=== PATIENT | female | born 1990 | race Caucasian/White ===

== ENCOUNTER 2017-10-13 22:34 | Inpatient (IN) | payer OTHER ==
[~2017-10-13] VITALS: Ht 165.1 cm; Wt 76.7 kg
--- NOTE | 2017-10-13 22:36 | NUR ---
PT BIBA TO ER BED 03
[2017-10-13 22:45] VITALS: BP 82/45
--- NOTE | 2017-10-13 22:45 | NUR ---
Pt presents to ed with recal bleeding, syncopy, and bleeding x1 day. Pt seen by on admission to ED. Pt states liposuction and fat transfer done in [place] x1 day ago. Pt has drain at superior gluteal fold. No c/o pain. A&Ox4. Positioned for comfort. Continue to monitor.
[2017-10-13] MEDS ORDERED: NACL 0.9% 1,000 ML IV ONE (23:15)
[2017-10-14] LABS: BASOPHILS # (AUTO) 0.4 K/uL (0.00-0.22); BASOPHILS % (AUTO) 4.3 % (0.0-2.0); EOSINOPHILS % (AUTO) 0.3 % (0.0-4.0); HEMATOCRIT 29.1 % (36-48); LYMPHOCYTES # (AUTO) 1.3 K/uL (2.5-16.5); LYMPHOCYTES % (AUTO) 15.2 % (20.5-51.1); MEAN CORPUSCULAR HEMOGLOBIN 32 pg (27-31); MEAN CORPUSCULAR HGB CONC 34 g/dL (33-37); MEAN CORPUSCULAR VOLUME 92.1 fL (80-94); MONOCYTES # (AUTO) 0.8 K/uL (0.8-1.0); MONOCYTES % (AUTO) 8.8 % (1.7-9.3); NEUTROPHILS # (AUTO) 6.3 K/uL (1.8-7.7); NEUTROPHILS % (AUTO) 71.4 % (42.2-75.2); PLATELET COUNT (AUTO) 161 K/uL (140-450); RED BLOOD CELL COUNT(AUTO) 3.16 MIL/uL (4.20-5.40); RED CELL DISTRIBUTION WIDTH 11.8 % (11.6-13.7); WHITE BLOOD COUNT (AUTO) 8.8 K/uL (4.8-10.8)
[2017-10-14] MEDS ORDERED: ACETAMINOPHEN EXTRA STRENGTH 500 MG TAB PO ONE (00:15)
[2017-10-14] MEDS ORDERED: PIPERACILLIN/TAZOBACTAM 3.375 GM in DEXTROSE 5% 50 ML IV ONE (00:20)
[2017-10-14] MEDS ORDERED: PIPERACILLIN/TAZOBACTAM 3.375 GM VIAL IV ONE ×2 (00:22→04:29)
[2017-10-14 00:40] LABS: CARBON DIOXIDE 26.9 mmol/L (21-32); CREATININE 0.6 mg/dL (0.6-1.3); POTASSIUM 3.9 mmol/L (3.5-5.1)
[2017-10-14 00:46] LABS: ALBUMIN 2.8 g/dL (3.4-5.0); TOTAL BILIRUBIN 0.4 mg/dL (0.0-1.0)
--- NOTE | 2017-10-14 01:00 | NUR ---
Pt states pain 5/10 is an acceptable, tolerable pain leve. VSS. continue to monitor.
[2017-10-14] MEDS ORDERED: NACL 0.9% 1,000 ML IV ONE (01:15)
[2017-10-14 01:16] LABS: APPEARANCE,URINE CLEAR (CLEAR); BILIRUBIN,URINE NEGATIVE (NEGATIVE); BLOOD, URINE 2+ (NEGATIVE); COLOR,URINE YELLOW (YELLOW); LEUKOCYTE ESTERASE ,URINE NEGATIVE (NEGATIVE); NITRITE, URINE NEGATIVE (NEGATIVE); PH,URINE 5.5 (5.0-9.0); UGLUCOSE NEGATIVE (NEGATIVE)
[2017-10-14 01:24] LABS: RBC,URINE 0-5 (RARE) /HPF (0-5); WBC,URINE 0-5 (RARE) /HPF (0-5)
[2017-10-14] MEDS ORDERED: ACETAMINOPHEN 325 MG TAB PO PRN (01:35)
[2017-10-14] MEDS ORDERED: HYDROcodone/APAP 5/325 MG 1 TAB TAB PO PRN ×2 (01:35)
[2017-10-14] MEDS ORDERED: ONDANSETRON 4 MG/2 ML VIAL IVP PRN (01:35)
[2017-10-14 02:25] VITALS: BP 101/41
--- NOTE | 2017-10-14 02:25 | NUR ---
PATIENT ADMITTED TO THE UNIT FROM ER. PATIENT AWAKE, ALERT AND ORIENTED. NO SIGNS AND SYMPTOMS OF DISTRESS NOTED. NO COMPLAINTS OF PAIN AT THIS TIME. PATIENT IS ON ROOM AIR. IV SITE NOTED ON RIGHT AC, ASYMPTOMATIC, INTACT, PATIENT. MULTIPLE 1CM SURGICAL INCISIONS WITH INTACT SUTURES NOTED ON PATIENT'S BACK. SURGICAL DRAIN NOTED IN GLUTEAL CLEFT, DRAINING SEROSANGUINOUS DRAINAGE. PLAN OF CARE DISCUSSED WITH PATIENT. PATIENT VERBALIZED UNDERSTANDING. BED IN LOWEST POSITION, SIDE RAILS UP AND CALL LIGHT WITHIN REACH. WILL CONTINUE TO MONITOR.
--- NOTE | 2017-10-14 02:32 | NUR ---
Report given and care transfered to [facility] room 104A. Transported via gurney with VSS.
[2017-10-14] MEDS: NACL 0.9% 1,000 ML IV SCH ×4 (03:00→20:20)
--- NOTE | 2017-10-14 04:30 | NUR ---
CHECKED ON PATIENT. PATIENT IS ASLEEP. NO SIGNS AND SYMPTOMS OF DISTRESS NOTED. BREATHING EVEN AND UNLABORED. WILL CONTINUE TO MONITOR.
[2017-10-14 05:00] VITALS: BP 96/40
[2017-10-14] MEDS ORDERED: PIPERACILLIN/TAZOBACTAM 3.375 GM in DEXTROSE 5% 50 ML IV SCH (05:00)
--- NOTE | 2017-10-14 07:27 | NUR ---
PATIENT REPORT GIVEN TO MORNING NURSE AT BEDSIDE FOR CONTINUITY OF CARE. PATIENT IS IN STABLE CONDITION
--- NOTE | 2017-10-14 07:28 | NUR ---
RECEIVED REPORT FROM PROGRAM MANAGEMENT SPECIALIST NURSE MANNIE AT BEDSIDE FOR CONTINUITY OF CARE. PT IS AWAKE AND ORIENTED. INTRODUCED SELF AND UPDATED BOARD. PT'S MOM IS AT BEDSIDE. PT DENIES PAIN. LUNG SOUNDS CLEAR ON AUSCULTATION. O2 SAT 98% ON RA. NO SOB. DRAINAGE ON GLUTEAL CLEFT INTACT. SEROSANGUINEOUS OF SMALL AMOUNT NOTED. MULTIPLE 1CM SURGICAL INCISIONS ON BACK INTACT WITH NO DRAINAGE. BED IN LOW POSITION, WHEELS LOCKED, CALL LIGHT WITHIN REACH. WILL CONTINUE TO MONITOR.
[2017-10-14 08:00] VITALS: BP 100/45
--- NOTE | 2017-10-14 09:06 | NUR ---
DR. SEARS CAME IN CONSULT FOR PT. NO SURGERY AT THIS TIME. TOLD PT SHE NEEDS TO RETURN BACK TO [facility] FOR FOLLOW UP WITH SURGEON THERE.
--- NOTE | 2017-10-14 10:07 | NUR ---
PATIENT HAS BEEN SCREENED AND CATEGORIZED LOW NUTRITION RISK. PATIENT WILL BE SEEN WITHIN 7 DAYS OF ADMISSION. 10/20/[address]
--- NOTE | 2017-10-14 11:00 | NUR ---
PT GOT UP OUT OF BED TO USE RESTROOM. WALKED WITH STEADY GAIT. HAD SEROSANGUINEOUS DRAINAGE OF LARGE AMOUNT FROM JARED DRAIN. CHANGED LINENS, GOWN AND PADS. PT BACK TO BED. DENIES PAIN. MOTHER AT BEDSIDE. ASKED IF PT NEEDED ANYTHING RIGHT NOW. STATED "NO." NO SIGNS OF DISTRESS. WILL CONTINUE TO MONITOR.
[2017-10-14 11:48] LABS: ANION GAP 9.2 (8-16); CARBON DIOXIDE 26.6 mmol/L (21-32); CREATININE 0.5 mg/dL (0.6-1.3); POTASSIUM 3.8 mmol/L (3.5-5.1)
[2017-10-14 12:00] VITALS: BP 110/55
[2017-10-14] MEDS: PIPER/TAZO 3.375GM/D5W PREMIX 50 ML IV SCH ×2 (13:43→20:20)
--- NOTE | 2017-10-14 15:30 | NUR ---
PT RESTING IN BED. ASKED IF PT WAS IN PAIN. DENIES PAIN AND DOES NOT WANT PAIN MEDICATION. MOTHER AT BEDSIDE. BED IN LOW POSITION, WHEELS LOCKED, CALL LIGHT WITHIN REACH. WILL CONTINUE TO MONITOR.
--- NOTE | 2017-10-14 15:49 | NUR ---
CM NOTE INITIAL REVIEW FAXED TO [facility] [phone] MICHAEL PH# [phone]
[2017-10-14 16:00] VITALS: BP 113/53
[2017-10-14 17:23] LABS: BASOPHILS # (AUTO) 0.2 K/uL (0.00-0.22); EOSINOPHILS # (AUTO) 0.1 K/uL (0-0.4); HEMATOCRIT 26.1 % (36-48); HEMOGLOBIN 8.6 g/dL (12.0-16.0); LYMPHOCYTES # (AUTO) 1.6 K/uL (2.5-16.5); MEAN CORPUSCULAR HEMOGLOBIN 31 pg (27-31); MEAN CORPUSCULAR HGB CONC 33 g/dL (33-37); MEAN CORPUSCULAR VOLUME 92.8 fL (80-94); MONOCYTES # (AUTO) 0.6 K/uL (0.8-1.0); PLATELET COUNT (AUTO) 136 K/uL (140-450); RED BLOOD CELL COUNT(AUTO) 2.81 MIL/uL (4.20-5.40); RED CELL DISTRIBUTION WIDTH 11.6 % (11.6-13.7); WHITE BLOOD COUNT (AUTO) 6.5 K/uL (4.8-10.8)
--- NOTE | 2017-10-14 19:30 | NUR ---
ASSUMED CARE OF PATIENT, AWAKE, ALERT AND ORIENTED. NO COMPLAINS. CALL LIGHT WITHIN REACH.
--- NOTE | 2017-10-14 19:30 | NUR ---
ENDORSED PT TO ALLOCATION ANALYST NURSE AT BEDSIDE FOR CONTINUITY OF CARE. PT IN STABLE CONDITION.
--- NOTE | 2017-10-14 20:00 | NUR ---
VITAL SIGNS STABLE. NO COMPLAINS. PLAN OF CARE DISCUSSED WITH PATIENT AND FAMILY MEMBER, VERBALIZED UNDERSTANDING WELL. CALL LIGHT WITHIN REACH.
[2017-10-14 20:51] VITALS: BP 109/50
[2017-10-15 00:14] VITALS: BP 93/46
--- NOTE | 2017-10-15 00:15 | NUR ---
AWAKE, NO COMPLAINS. AFEBRILE. CALL LIGHT WITHIN REACH. VITAL SIGNS STABLE.
--- NOTE | 2017-10-15 04:00 | NUR ---
SLEEPING WELL. EASILY AROUSABLE. NO COMPLAINS. CALL LIGHT WITHIN REACH.
[2017-10-15] MEDS: PIPER/TAZO 3.375GM/D5W PREMIX 50 ML IV SCH ×2 (04:12→13:41)
[2017-10-15] MEDS: NACL 0.9% 1,000 ML IV SCH (04:12)
[2017-10-15 04:43] VITALS: BP 101/48
--- NOTE | 2017-10-15 07:08 | NUR ---
ENDORSED CARE AT BEDSIDE WITH ALLEN RN, PATIENT IN STABLE CONDITION.
--- NOTE | 2017-10-15 07:09 | NUR ---
RECEIVED REPORT FROM AQUACULTURIST RN. PATIENT IS AAOX4, HAS NO SIGNS AND SYMPTOMS OF ACUTE DISTRESS NOTED AT THIS TIME. PATIENT HAS IV TO THE RIGHT AC 20G INFUSING NS AT 125 ML/HR. SITE IS CLEAN, DRY, PATENT AND INTACT. DISCUSSED PLAN OF CARE WITH PATIENT AND SHE VERBALIZED UNDERSTANDING. BED IN LOWEST POSITION, SIDE RAILS UP X2, CALL LIGHT PLACED WITHIN REACH. WILL CONTINUE TO MONITOR.
[2017-10-15 08:00] VITALS: BP 107/53
[2017-10-15 08:22] LABS: BASOPHILS % (AUTO) 0.7 % (0.0-2.0); EOSINOPHILS # (AUTO) 0.3 K/uL (0-0.4); EOSINOPHILS % (AUTO) 4.9 % (0.0-4.0); HEMATOCRIT 25.7 % (36-48); HEMOGLOBIN 8.8 g/dL (12.0-16.0); LYMPHOCYTES # (AUTO) 1.6 K/uL (2.5-16.5); MEAN CORPUSCULAR HEMOGLOBIN 32 pg (27-31); MEAN CORPUSCULAR HGB CONC 34 g/dL (33-37); MEAN CORPUSCULAR VOLUME 94.1 fL (80-94); MONOCYTES # (AUTO) 0.5 K/uL (0.8-1.0); MONOCYTES % (AUTO) 6.9 % (1.7-9.3); NEUTROPHILS # (AUTO) 4.4 K/uL (1.8-7.7); NEUTROPHILS % (AUTO) 63.5 % (42.2-75.2); PLATELET COUNT (AUTO) 142 K/uL (140-450); RED BLOOD CELL COUNT(AUTO) 2.73 MIL/uL (4.20-5.40); RED CELL DISTRIBUTION WIDTH 12.6 % (11.6-13.7); WHITE BLOOD COUNT (AUTO) 6.9 K/uL (4.8-10.8)
[2017-10-15 08:36] LABS: ALBUMIN 2.3 g/dL (3.4-5.0); ANION GAP 10.4 (8-16); CARBON DIOXIDE 25.4 mmol/L (21-32); CREATININE 0.4 mg/dL (0.6-1.3); POTASSIUM 3.8 mmol/L (3.5-5.1); TOTAL BILIRUBIN 0.5 mg/dL (0.0-1.0)
[2017-10-15 12:00] VITALS: BP 101/53
--- NOTE | 2017-10-15 13:44 | NUR ---
CM NOTE CONCURRENT REVIEW FAXED TO [facility] [phone] MICHAEL PH# [phone]
[2017-10-15] MEDS ORDERED: AMOX-1000 PO (14:01)
--- NOTE | 2017-10-15 15:20 | NUR ---
WALKED IN THE ROOM TO SEE IF PATIENT WAS READY TO GO HOME AND FOUND HER KNEELING ON THE SIDE OF THE BED, HER MOTHER WAS HOLDING HER AND TALKING LOUD TO HER. PATIENT LOOKED PALE AND CLAMMY, EYES ROLLING BACK AND SHE WAS AND SAYING IN [place] "BECAUSE I NEED IT". HELPED PATIENT UP AND SAT HER DOWN WITH FRAMING MILL OPERATOR HELPER'S HELP GRABBED VITAL SIGNS MACHINE AND HELP FROM WAQAS MADRIGAL. BLOOD PRESSURE WAS 100/24.
--- NOTE | 2017-10-15 15:25 | NUR ---
PATIENT IS AAOX4, DOESN'T REALLY REMEMBER WHAT DURING THE EPISODE. BLOOD PRESSURE IS 99/35. MADE DR CALI AWARE. PATIENT IS STATING THAT SHE WANTS TO GO HOME.
--- NOTE | 2017-10-15 15:30 | NUR ---
DR CALI IN HERE TALKING TO PATIENT. HE ASKED HER IF SHE WANTED TO STAY ONE MORE NIGHT OR GO HOME THIS AFTER NOON. PATIENT STATED THAT SHE WOULD LIKE TO GO HOME THIS AFTER NOON. WILL CONTINUE TO MONITOR.
--- NOTE | 2017-10-15 16:30 | NUR ---
WALKED AROUND THE UNIT WITH PATIENT. SHE STATES SHE FEELS BETTER. AMBULATED WELL, DID NOT FAINT DURING WALK.
--- NOTE | 2017-10-15 16:45 | NUR ---
REASSESSED PATIENTS BLOOD PRESSURE IT WAS 90/50. DIASTOLIC HAS GONE UP SINCE PATIENT FAINTED. EDUCATED PATIENT ON THE IMPORTANCE OF DRINKING PLENTY OF FLUIDS AND EATING HEALTHY. ALSO EDUCATED HER ON TAKING HER TIME TO GET UP FROM A LAYING POSITION. PATIENT FEELS GOOD ENOUGH TO GO HOME NOW.
--- NOTE | 2017-10-15 17:00 | NUR ---
DISCHARGE ORDERS ARE IN PLACE. EDUCATED PATIENT ON FOLLOWING UP WITH PRIMARY CARE PHYSICIAN AND SURGEON. INFORMED HER OF S/S OF DISTRESS AND TO SEEK EMERGENCY MEDICAL ATTENTION. PATIENT VERBALIZED UNDERSTANDING. HAD ALREADY REMOVED IV FROM SITE. SITE IS CLEAN AND DRY. ALL BELONGINGS ARE WITH PATIENT. MOTHER AT THE BEDSIDE. ID BANDS REMOVED. PATIENT HAS NO SIGNS AND SYMPTOMS OF ACUTE DISTRESS NOTED AT THIS TIME. WAQAS MADRIGAL WILL WALK PATIENT OUT.
== END 2017-10-15 17:00 | disposition home or self-care (01) | DRG 813 ==
LOC: MED 22:34 → MTU 10-14 01:39
PROVIDERS: ADMIT Internal Medicine; ATTEND Internal Medicine
DX: L76.22 Postprocedural hemorrhage of skin and subcutaneous tissue following other procedure (principal); I95.9 Hypotension, unspecified; E87.8 Other disorders of electrolyte and fluid balance, not elsewhere classified; E44.1 Mild protein-calorie malnutrition; E83.51 Hypocalcemia; Y83.8 Other surgical procedures as the cause of abnormal reaction of the patient, or of later complication, without mention of misadventure at the time of the procedure; D62 Acute posthemorrhagic anemia; E66.9 Obesity, unspecified; Z68.28 Body mass index [BMI] 28.0-28.9, adult; Z88.6 Allergy status to analgesic agent
CPT/HCPCS: 36415; 80048; 80053; 81001; 81025; 83605; 83735; 85025; 85610; 85730; 86886; 86900; 86901; 87040; 87081; 93005; 96361; 96365; 99285; J2543; J7030; J7060

== ENCOUNTER 2021-09-16 18:00 | Emergency (ER) | payer MEDICAID, OTHER ==
[~2021-09-16] VITALS: Ht 165.1 cm; Wt 78.0 kg
[~2021-09-16 18:00] MED LIST: AMOX-1000 PO
[2021-09-16 18:07] VITALS: BP 135/81
--- NOTE | 2021-09-16 18:11 | NUR ---
PT AMBULATED TO ER BED 5 WITH A STEADY GAIT.
--- NOTE | 2021-09-16 18:44 | NUR ---
COLLECTED BLOOD WALKED TO LAB.
--- NOTE | 2021-09-16 18:55 | NUR ---
RADIOLOGY AT BEDSIDE
--- NOTE | 2021-09-16 19:00 | NUR ---
PT STATES SHE IS UNABLE TO PROVIDE UA AT THIS TIME, MADE AWARE. PROVIDED WATER.
[2021-09-16] MEDS ORDERED: diphenhydrAMINE 50 MG/ML VIAL IVP ONE (19:10)
[2021-09-16] MEDS ORDERED: DEXAMETHASONE 10 MG/ML VIAL IVP ONE (19:10)
[2021-09-16] MEDS ORDERED: METOCLOPRAMIDE 10 MG/2 ML INJ VIAL IVP ONE (19:10)
[2021-09-16] MEDS ORDERED: ACETAMINOPHEN EXTRA STRENGTH 500 MG TAB PO ONE (19:10)
[2021-09-16 19:33] LABS: BASOPHILS # (AUTO) 0.1 K/uL (0.00-0.22); BASOPHILS % (AUTO) 0.9 % (0.0-2.0); EOSINOPHILS # (AUTO) 0.1 K/uL (0-0.4); LYMPHOCYTES # (AUTO) 1.8 K/uL (2.5-16.5); RED CELL DISTRIBUTION WIDTH 12.3 % (11.6-13.7)
--- NOTE | 2021-09-16 19:38 | NUR ---
GAVE REPORT TO WAQAS CACERES. TRANSFER OF CARE AT THIS TIME.
[2021-09-16 19:43] LABS: HEMATOCRIT 39.7 % (36-48); HEMOGLOBIN 13.6 g/dL (12.0-16.0); LYMPHOCYTES % (AUTO) 24.4 % (20.5-51.1); MEAN CORPUSCULAR HEMOGLOBIN 32 pg (27-31); MEAN CORPUSCULAR HGB CONC 34 g/dL (33-37); MEAN CORPUSCULAR VOLUME 91.7 fL (80-94); MONOCYTES # (AUTO) 0.4 K/uL (0.8-1.0); MONOCYTES % (AUTO) 5.7 % (1.7-9.3); PLATELET COUNT (AUTO) 219 K/uL (140-450); RED BLOOD CELL COUNT(AUTO) 4.33 MIL/uL (4.20-5.40); WHITE BLOOD COUNT (AUTO) 7.4 K/uL (4.8-10.8)
[2021-09-16 19:48] LABS: ANION GAP 10.7 (8-16); CARBON DIOXIDE 28.8 mmol/L (21-32); CREATININE 0.5 mg/dL (0.6-1.3); POTASSIUM 4.5 mmol/L (3.5-5.1); TOTAL BILIRUBIN 0.3 mg/dL (0.0-1.0)
--- NOTE | 2021-09-16 21:55 | NUR ---
LAB DRAW FOR 2ND TROPONIN DONE.
[2021-09-16] MEDS ORDERED: ACET-2619 PO (22:36)
[2021-09-16 23:28] VITALS: BP 109/58
== END 2021-09-16 23:30 | disposition home or self-care (01) ==
LOC: MED 18:00
DX: R07.89 Other chest pain (principal); R55 Syncope and collapse; R51.9 Headache, unspecified; Z79.899 Other long term (current) drug therapy
CPT/HCPCS: 36415; 71045; 80053; 81002; 81025; 83690; 84484; 85025; 85379; 93005; 96374; 96375; 99285; J1100; J1200; J2765; Q0092